=== PATIENT | male | born 1950 | race Caucasian/White ===

== ENCOUNTER 2016-12-23 21:41 | Emergency (ER) | payer BC, MEDICAID ==
[~2016-12-23] VITALS: Ht 152.4 cm; Wt 90.9 kg
[~2016-12-23 21:41] MED LIST: ASPI-664; ATOR40TA21; DIVA500T33; DONE10TA7; DONE5TAB46; GLIM4TAB; MECL25TA; METF500T4; OLAN5TAB19; PARO30TA48; PIOG15TA12; ZOLP10TA
[2016-12-23 21:43] VITALS: Ht 152.4 cm; Wt 90.9 kg
[2016-12-23] MEDS ORDERED: CEPH-443 PO (22:27)
[2016-12-23] MEDS ORDERED: BACI28.34 TOP (22:27)
--- NOTE | 2016-12-23 22:40 | ERD ---
ER Documentation Chief Complaint Date/Time DATE: 12/23/16 TIME: 22:38 Chief Complaint RIGHT THUMB WOUND. DAUGHTER STATES HE KEEPS PICKING AT IT HPI 66-year-old male presents with right thumb swelling and pain that he self drained at home yesterday. He is on the lateral aspect by the nailbed, achy, mild, there was some pus that came out of it. He has improved pain. No trauma , fevers or chills. ROS All systems reviewed and are negative except as per history of present illness. Medications Home Meds Active Scripts Cephalexin* (Keflex*) 500 Mg Capsule, 500 MG PO QID for 5 Days, CAP Prov:TOR MCGHEE PA-C 12/23/16 Bacitracin* (Bacitracin Zinc Oint*) 28.35 Gm Oint, 1 APPLIC TOP BID, #1 TUB APPLI TO Prov:TOR MCGHEE PA-C 12/23/16 Reported Medications Donepezil* (Aricept*) 5 Mg Tablet, HS, 0 Refills 12/30/09 Divalproex Sodium (Depakote) 500 Mg Tablet.dr, DAILY, 0 Refills 12/29/09 Metformin* (Glucophage*) 500 Mg Tab, BID, 0 Refills 12/29/09 Aspirin* (Aspirin* EC) 81 Mg Tablet.dr, DAILY, 0 Refills 12/29/09 Atorvastatin (Lipitor) 40 Mg Tablet, DAILY, 0 Refills 12/29/09 Glimepiride* (Glimepiride*) 4 Mg Tablet, BID, 0 Refills 12/29/09 Zolpidem Tartrate* (Ambien*) 10 Mg Tablet, HS, 0 Refills 12/29/09 Pioglitazone Hcl* (Actos*) 15 Mg Tablet, BID, 0 Refills 12/29/09 Olanzapine (Zyprexa) 5 Mg Tablet, DAILY, 0 Refills 12/29/09 Meclizine Hcl (Medi-Meclizine) 25 Mg Tablet, DAILY\, 0 Refills 12/29/09 Paroxetine Hcl* (Paxil*) 30 Mg Tablet, DAILY, 0 Refills 12/29/09 Allergies Allergies: Coded Allergies: No Known Drug Allergy (Verified Allergy, Mild, 12/29/09) PMhx/Soc History of Surgery: Yes (APPENDECTOMY, TONSILLECTOMY, CHOLECYSTECTOMY) Anesthesia Reaction: No Hx Neurological Disorder: Yes (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 The patient appears in no acute distress. HEENT: Head is normocephalic, atraumatic. No scleral icterus. Neck: Supple. Nontender. Lungs: Clear to auscultation. Normal air movement. Heart: Regular rate and rhythm. S1 and S2 are normal. No murmurs, gallops, or rubs. Abdomen: Nondistended. Extremities: The corner at the nailbed of the right thumb shows erythema, and opening, there is no purulent material expressible with palpation, no fluctuance. He is able to flex and extend the thumb fully at the IP joint. Capillary refill less than 2 seconds, finger is atraumatic. Neurologic: Alert and oriented 3. No focal deficits. Normal speech and gait. Skin: Normal turgor. No rash or lesions. Procedures/MDM 66-year-old male presents with paronychia of the right great, he self treated at home that resulted in drainage of purulent material. There is no evidence of paronychia that needs re-drainage, there are no signs of tenosynovitis, and I am doubtful that there is underlying fracture, osteomyelitis or septic arthritis. He will be given a topical antibacterial ointment, bacitracin as well as Keflex to take. He does not need drainage, will have any limb threatening process noted at this time. Departure Diagnosis: Primary Impression: Paronychia Additional Impression: Encounter for wound re-check Condition: Good Patient Instructions: TOR Blanton PA-C Dec 23, 2016 22:39
[2016-12-23 22:49] VITALS: BP 122/71; PULSE 79; RESP 20; TEMP 98
== END 2016-12-23 22:49 | disposition home or self-care (01) ==
LOC: FTE 21:41
DX: L03.011 Cellulitis of right finger (principal); Z48.01 Encounter for change or removal of surgical wound dressing; Z79.82 Long term (current) use of aspirin; Z79.84 Long term (current) use of oral hypoglycemic drugs
CPT/HCPCS: 99283